=== PATIENT | male | born 1980 | race Caucasian/White ===

== ENCOUNTER 2018-05-16 22:30 | Emergency (ER) | payer BC, SELFPAY ==
[2018-05-16] MEDS ORDERED: FAMOTIDINE 20 MG/2 ML VIAL IV ONE (22:52)
[2018-05-16 23:06] LABS: Absolute Lymphocytes (CBC) 2.7 K/uL (0.7-4.9); Absolute Monocytes 0.5 K/uL (0.1-1.3); Absolute Neutrophil 2.5 K/uL (1.8-8.0); Basophils % 1.2 % (0-1.3); Eosinophils % 6.1 % (0-4.4); Hematocrit 39.2 % (39.6-49.0); Lymphocytes % 43.9 % (15.3-44.8); MCH 32.6 pg (27.0-35.0); MPV 7.7 fL (7.6-11.3); Monocytes % 8.2 % (3.3-12.3); RBC Red Blood Cell Count 4.22 M/uL (4.33-5.43)
[2018-05-16 23:08] LABS: Protime INR 0.98
[2018-05-16] MEDS ORDERED: MORPHINE 4 MG/ML SYR ONE (23:35)
[2018-05-16 23:45] LABS: Barbiturates NEGATIVE (NEGATIVE); Benzodiazepines NEGATIVE (NEGATIVE); Cocaine NEGATIVE (NEGATIVE); METHAMPHETAM NEGATIVE (NEGATIVE); Methadone NEGATIVE (NEGATIVE); Opiates NEGATIVE (NEGATIVE); Phencyclidine NEGATIVE (NEGATIVE); THC Cannibis NEGATIVE (NEGATIVE)
[2018-05-16 23:48] LABS: ALT/SGPT 29 U/L (12-78); AST/SGOT 24 U/L (15-37); Albumin 3.8 g/dL (3.4-5.0); Alkaline Phosphatase 74 U/L (45-117); BUN Blood Urea Nitrogen 18 mg/dL (7-18); Bicarbonate 23 mmol/L (21-32); Bilirubin Direct < 0.1 mg/dL (0-0.2); Bilirubin Total 0.2 mg/dL (0.2-1.0); Creatine Phosphokinase 241 U/L (39-308); Glucose Level 118 mg/dL (74-106); Magnesium 2.4 mg/dL (1.8-2.4); NT PRO-BNP 13 pg/mL (<125); Potassium 3.8 mmol/L (3.5-5.1); Protein, Total 7.2 g/dL (6.4-8.2); Sodium Level 140 mmol/L (136-145)
[2018-05-17] MEDS ORDERED: MAGNE/ALUM HYDROXD 30 ML UCUP ONE (01:06)
--- NOTE | 2018-05-17 01:14 | ER ---
Nurse's Notes [facility] Name: Kwasi Rincon Age: 37 yrs Sex: Male : 1980 Arrival Date: 05/16/2018 Time: 22:31 Bed 18 Private MD: Diagnosis: Chest pain, unspecified Presentation: 05/16 22:34 Presenting complaint: Patient states: I woke up from a nap around 4:30 this afternoon tl2 and had chest pain here (points to middle of chest) and goes straight through to mid back, it seems to be getting worse. Reports nausea, dizziness and blurry vision. Transition of care: patient was not received from another setting of care. Onset of symptoms was May 16, 2018 at 16:30. Risk Assessment: Do you want to hurt yourself or someone else? Patient reports no desire to harm self or others. Initial Sepsis Screen: Does the patient meet any 2 criteria? No. Patient's initial sepsis screen is negative. Does the patient have a suspected source of infection? No. Patient's initial sepsis screen is negative. Care prior to arrival: None. 22:34 Method Of Arrival: Ambulatory tl2 22:34 Acuity: GILES 3 tl2 Triage Assessment: 22:37 General: Appears in no apparent distress. uncomfortable, Behavior is cooperative, tl2 appropriate for age, anxious. Pain: Complains of pain in mid-sternal area Pain does not radiate. Pain currently is 10 out of 10 on a pain scale. Quality of pain is described as pressure, sharp. Historical: - Allergies: 22:37 No Known Allergies; tl2 - Home Meds: 22:37 None [Active]; tl2 - PMHx: 22:37 None; tl2 - PSHx: 22:37 bowel surgery as infant; tl2 - Immunization history:: Adult Immunizations up to date. - Social history:: Smoking status: Patient uses tobacco products, denies chronic smoking, but will smoke occasionally, chewing tobacco. - Ebola Screening: : No symptoms or risks identified at this time. Screenin:40 Abuse screen: Denies threats or abuse. Nutritional screening: No deficits noted. tl2 Tuberculosis screening: No symptoms or risk factors identified. Fall Risk None identified. Assessment: 22:50 General: Appears in no apparent distress. uncomfortable, Behavior is cooperative, tl2 appropriate for age, anxious. Pain: Complains of pain in back and mid-sternal area Pain does not radiate. Pain currently is 10 out of 10 on a pain scale. Quality of pain is described as sharp. Neuro: Level of Consciousness is awake, alert, obeys commands, Oriented to person, place, time, situation. 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 Cardiovascular: Chest pain. Respiratory: Airway is patent Respiratory effort is even, unlabored, Respiratory pattern is regular, symmetrical. GI: Reports nausea. : No signs and/or symptoms were reported regarding the genitourinary system. Derm: Skin is pink, warm \T\ dry. 05/17 00:15 Reassessment: PT STATING PAIN RECURRING, BUT VS REMAIN STABLE ON MONITOR. bp 01:08 Reassessment: PROVIDER AT B/S FOR RE-EVAL. bp 01:23 Reassessment: PT D/C HOME AMBULATORY WITH FAMILY, DX WITH NONSPECIFIC CHEST PAIN. bp Vital Signs: 05/16 22:37 BP 146 / 98; Pulse 70; Resp 20; Temp 98.6(O); Pulse Ox 99% on R/A; Weight 104.33 kg; tl2 Height 5 ft. 11 in. (180.34 cm); Pain 10/10; 05/17 00:15 BP 128 / 83; Pulse 76; Resp 16; Pulse Ox 97% ; bp 01:07 BP 124 / 87; Pulse 60; Resp 23; Pulse Ox 98% ; bp 05/16 22:37 Body Mass Index 32.08 (104.33 kg, 180.34 cm) tl2 ED Course: 05/16 22:31 Patient arrived in ED. wh 22:35 Tong Hurtado, RN is Primary Nurse. bp 22:36 Triage completed. tl2 22:37 Arm band placed on right wrist. tl2 22:38 Fletcher Wheatley NP is PHCP. pm1 22:38 Farzad Lawrence MD is Attending Physician. pm1 22:40 Patient has correct armband on for positive identification. Placed in gown. Bed in low tl2 position. Call light in reach. Side rails up X 1. Adult w/ patient. 22:43 Inserted saline lock: 18 gauge in right forearm, using aseptic technique. Blood tl2 collected. placed by Tong, RN. 23:02 XRAY Chest (1 view) In Process Unspecified. EDMS 05/17 01:16 Wayne Liu MD is Referral Physician. pm1 01:22 No provider procedures requiring assistance completed. IV discontinued, intact, bp bleeding controlled, No redness/swelling at site. Pressure dressing applied. Administered Medications: 05/16 22:54 Drug: Pepcid 20 mg Route: IVP; Site: right forearm; bp 23:08 Follow up: Response: No adverse reaction bp 23:30 Drug: morphine 4 mg Route: IVP; Site: right forearm; bp 23:38 Follow up: Response: Pain is decreased bp 05/17 01:07 Drug: GI Cocktail without - (Maalox Suspension 30 ml, Lidocaine Liquid 2 % 15 bp ml) Route: PO; 01:08 Follow up: Response: No adverse reaction; Pain is decreased bp Outcome: 01:14 Discharge ordered by MD. pm1 01:23 Discharged to home ambulatory, with family. bp 01:23 Condition: stable 01:23 Discharge instructions given to patient, Instructed on discharge instructions, follow up and referral plans. medication usage, Demonstrated understanding of instructions, follow-up care, medications, Prescriptions given X 1. 01:24 Patient left the ED. bp Signatures: Dispatcher [employer] EDMS Fletcher Wheatley, ALBERT SHANK CEMENTER HAND pm1 Daya Chang, MERI RN tl2 Elma Garcia Brian, RN RN bp Corrections: (The following items were deleted from the chart) 05/16 22:39 22:34 Presenting complaint: Patient states: I woke up from a nap around 4:30 this tl2 afternoon and had chest pain here (points to middle of chest), it seems to be getting worse. Reports nausea, dizziness and blurry vision. tl2
--- NOTE | 2018-05-17 01:15 | EDPHYS ---
Physician Documentation [facility] Name: Kwasi Rincon Age: 37 yrs Sex: Male : 1980 Arrival Date: 05/16/2018 Time: 22:31 Bed 18 Private MD: ED Physician Farzad Lawrence HPI: 05/16 23:50 This 37 yrs old Male presents to ER via Ambulatory with complaints of Chest pm1 pain. 23:50 The patient or guardian reports chest pain that is located primarily in the mid-sternal pm1 area. The pain does not radiate. Associated signs and symptoms: Pertinent negatives: cough, nausea, shortness of breath, vomiting. The chest pain is described as causing indigestion, sharp. Duration: The patient or guardian reports a single episode, that is still ongoing. Modifying factors: the symptoms are aggravated by eating. Modifying factors: The symptoms are alleviated by antacids. Severity of pain: in the emergency department the pain is actually worse. The patient has not experienced similar symptoms in the past. The patient has not recently seen a physician. Historical: - Allergies: 22:37 No Known Allergies; tl2 - Home Meds: 22:37 None [Active]; tl2 - PMHx: 22:37 None; tl2 - PSHx: 22:37 bowel surgery as ; tl2 - Immunization history:: Adult Immunizations up to date. - Social history:: Smoking status: Patient uses tobacco products, denies chronic smoking, but will smoke occasionally, chewing tobacco. - Ebola Screening: : No symptoms or risks identified at this time. ROS: 23:50 Constitutional: Negative for fever, chills, and weight loss, Eyes: Negative for injury, pm1 pain, redness, and discharge, ENT: Negative for injury, pain, and discharge, Neck: Negative for injury, pain, and swelling, Respiratory: Negative for shortness of breath, cough, wheezing, and pleuritic chest pain. 23:50 Abdomen/GI: Negative for abdominal pain, nausea, vomiting, diarrhea, and constipation, Back: Negative for injury and pain, : Negative for injury, bleeding, discharge, and swelling, MS/Extremity: Negative for injury and deformity, Skin: Negative for injury, rash, and discoloration, Neuro: Negative for headache, weakness, numbness, tingling, and seizure. 23:50 Cardiovascular: Positive for chest pain, Negative for edema, orthopnea, palpitations. Exam: 23:50 Constitutional: This is a well developed, well nourished patient who is awake, alert, pm1 and in no acute distress. Head/Face: Normocephalic, atraumatic. Eyes: Pupils equal round and reactive to light, extra-ocular motions intact. Lids and lashes normal. Conjunctiva and sclera are non-icteric and not injected. Cornea within normal limits. Periorbital areas with no swelling, redness, or edema. ENT: Nares patent. No nasal discharge, no septal abnormalities noted. Tympanic membranes are normal and external auditory canals are clear. Oropharynx with no redness, swelling, or masses, exudates, or evidence of obstruction, uvula midline. Mucous membranes moist. Neck: Trachea midline, no thyromegaly or masses palpated, and no cervical lymphadenopathy. Supple, full range of motion without nuchal rigidity, or vertebral point tenderness. No Meningismus. Chest/axilla: Normal chest wall appearance and motion. Nontender with no deformity. No lesions are appreciated. Cardiovascular: Regular rate and rhythm with a normal S1 and S2. No gallops, murmurs, or rubs. Normal PMI, no JVD. No pulse deficits. Respiratory: Lungs have equal breath sounds bilaterally, clear to auscultation and percussion. No rales, rhonchi or wheezes noted. No increased work of breathing, no retractions or nasal flaring. Abdomen/GI: Soft, non-tender, with normal bowel sounds. No distension or tympany. No guarding or rebound. No evidence of tenderness throughout. Back: No spinal tenderness. No costovertebral tenderness. Full range of motion. Skin: Warm, dry with normal turgor. Normal color with no rashes, no lesions, and no evidence of cellulitis. MS/ Extremity: Pulses equal, no cyanosis. Neurovascular intact. Full, normal range of motion. 23:50 Neuro: Orientation: is normal, Motor: is normal, moves all fours. Vital Signs: 22:37 BP 146 / 98; Pulse 70; Resp 20; Temp 98.6(O); Pulse Ox 99% on R/A; Weight 104.33 kg; tl2 Height 5 ft. 11 in. (180.34 cm); Pain 10/10; 05/17 00:15 BP 128 / 83; Pulse 76; Resp 16; Pulse Ox 97% ; bp 01:07 BP 124 / 87; Pulse 60; Resp 23; Pulse Ox 98% ; bp 05/16 22:37 Body Mass Index 32.08 (104.33 kg, 180.34 cm) tl2 MDM: 05/16 22:38 Patient medically screened. pm1 05/17 01:01 Data reviewed: vital signs. Data interpreted: Pulse oximetry: on room air is 97 %. pm1 Interpretation: normal. 01:14 ED course: GI cocktail resolved his pain. pm1 05/16 22:36 Order name: Basic Metabolic Panel bp 05/16 22:36 Order name: CBC with Diff; Complete Time: 23:49 bp 05/16 22:36 Order name: Ckmb; Complete Time: 23:49 bp 05/16 22:36 Order name: CPK; Complete Time: 23:49 bp 05/16 22:36 Order name: LFT's; Complete Time: 23:49 bp 05/16 22:36 Order name: Magnesium; Complete Time: 23:49 bp 05/16 22:36 Order name: NT PRO-BNP; Complete Time: 23:49 bp 05/16 22:36 Order name: PT-INR; Complete Time: 23:49 bp 05/16 22:36 Order name: Ptt, Activated; Complete Time: 23:49 bp 05/16 22:36 Order name: Troponin (emerg Dept Use Only); Complete Time: 00:35 bp 05/16 22:36 Order name: XRAY Chest (1 view) bp 05/16 22:36 Order name: Basic Metabolic Panel; Complete Time: 23:49 EDMS 05/16 23:08 Order name: UDS; Complete Time: 23:49 bp 05/16 23:28 Order name: Urine Dipstick--Ancillary (enter results) rg2 05/16 22:36 Order name: EKG; Complete Time: 22:37 bp 05/16 22:36 Order name: Cardiac monitoring; Complete Time: 22:43 bp 05/16 22:36 Order name: EKG - Nurse/Tech; Complete Time: 22:43 bp 05/16 22:36 Order name: IV Saline Lock; Complete Time: 22:43 bp 05/16 22:36 Order name: Labs collected and sent; Complete Time: 22:43 bp 05/16 22:36 Order name: O2 Per Protocol; Complete Time: 22:43 bp 05/16 22:36 Order name: O2 Sat Monitoring; Complete Time: 22:43 bp 05/16 22:36 Order name: Urine Dipstick-Ancillary (obtain specimen); Complete Time: 23:29 bp Administered Medications: 05/16 22:54 Drug: Pepcid 20 mg Route: IVP; Site: right forearm; bp 23:08 Follow up: Response: No adverse reaction bp 23:30 Drug: morphine 4 mg Route: IVP; Site: right forearm; bp 23:38 Follow up: Response: Pain is decreased bp 05/17 01:07 Drug: GI Cocktail without - (Maalox Suspension 30 ml, Lidocaine Liquid 2 % 15 bp ml) Route: PO; 01:08 Follow up: Response: No adverse reaction; Pain is decreased bp Disposition: 02:16 Co-signature as Attending Physician, Farzad Lawrence MD. [email or web address] Disposition: 05/17/18 01:14 Discharged to Home. Impression: Chest pain, unspecified. - Condition is Stable. - Discharge Instructions: Nonspecific Chest Pain. - Prescriptions for Pepcid 20 mg Oral Tablet - take 1 tablet by ORAL route every 12 hours for 10 days; 20 tablet. - Medication Reconciliation Form, Thank You Letter, Antibiotic Education, Prescription Opioid Use form. - Follow up: Emergency Department; When: As needed; Reason: Worsening of condition. Follow up: Private Physician; When: 2 - 3 days; Reason: Recheck today's complaints, Continuance of care, Re-evaluation by your physician. Follow up: Wayne Liu MD; When: 2 - 3 days; Reason: Recheck today's complaints, Continuance of care, Re-evaluation by your physician. - Problem is new. - Symptoms have improved. Signatures: Dispatcher [employer] EDMS Farzad Lawrence MD MD pkl Fletcher Wheatley NP CT MRI TECHNOLOGIST pm1 Daya Chang, EMRI RN tl2 Tong Hurtado RN RN bp Corrections: (The following items were deleted from the chart) 01:16 01:14 05/17/2018 01:14 Discharged to Home. Impression: Chest pain, unspecified. pm1 Condition is Stable. Forms are Medication Reconciliation Form, Thank You Letter, Antibiotic Education, Prescription Opioid Use. Follow up: Emergency Department; When: As needed; Reason: Worsening of condition. Follow up: Private Physician; When: 2 - 3 days; Reason: Recheck today's complaints, Continuance of care, Re-evaluation by your physician. Problem is new. Symptoms have improved. pm1 01:24 01:16 05/17/2018 01:14 Discharged to Home. Impression: Chest pain, unspecified. bp Condition is Stable. Discharge Instructions: Nonspecific Chest Pain. Prescriptions for Pepcid 20 mg Oral Tablet - take 1 tablet by ORAL route every 12 hours for 10 days; 20 tablet. and Forms are Medication Reconciliation Form, Thank You Letter, Antibiotic Education, Prescription Opioid Use. Follow up: Emergency Department; When: As needed; Reason: Worsening of condition. Follow up: Private Physician; When: 2 - 3 days; Reason: Recheck today's complaints, Continuance of care, Re-evaluation by your physician. Follow up: Wayne Liu; When: 2 - 3 days; Reason: Recheck today's complaints, Continuance of care, Re-evaluation by your physician. Problem is new. Symptoms have improved. pm1
[2018-05-17 04:53] LABS: Urine Blood TRACE (NEG); Urine Glucose NEGATIVE (NEG); Urine Protein NEGATIVE (NEG); Urine pH 5.5 (5.0-7.0)
--- NOTE | 2018-05-17 08:10 | RAD REPORT ---
EXAM DESCRIPTION: RAD - Chest Single View - 05/16/2018 11:02 pm CLINICAL HISTORY: Chest pain, nausea, blurred vision COMPARISON: None. TECHNIQUE: AP portable chest image was obtained 2252 hours . FINDINGS: Lung volumes are relatively low. No peripheral mass, consolidation or failure. Heart and v asculature are normal. No measurable pleural effusion and no pneumothorax. No gross bony abnormality seen. No acute aortic findings suspected. IMPRESSION: No acute cardiopulmonary process.
--- NOTE | 2018-05-18 07:44 | EKG ---
Test Date: 2018-05-16 Test Time: 22:32:05 Aircraft Part Assembler: JONATHON MEASUREMENT RESULTS: Intervals: Rate: 69 MO: 162 QRSD: 78 QT: 380 QTc: 407 [place]: P: 48 MO: 162 QRS: 2 T: 13 INTERPRETIVE STATEMENTS: Normal sinus rhythm with sinus arrhythmia Normal ECG No previous ECG available for comparison Electronically Signed On 05-18-18 07:43:15 CDT by Chay Mchugh
== END 2018-05-17 01:24 | disposition home or self-care (01) ==
LOC: ER 22:30
DX: R07.9 Chest pain, unspecified (principal); Z72.0 Tobacco use
CPT/HCPCS: 36415; 71045; 80048; 80076; 80307; 81003; 82550; 82553; 83735; 83880; 84484; 85025; 85610; 85730; 93005; 96374; 96375; 99284

== ENCOUNTER 2019-09-24 10:41 | Emergency (ER) | payer BC, SELFPAY ==
[2019-09-24] MEDS ORDERED: CLINDAMYCIN 900MG/D5W 900 MG/50 ML IVPB IV ONE (12:47)
[2019-09-24] MEDS ORDERED: KETOROLAC 30 MG/ML INJ ONE (12:53)
[2019-09-24 12:57] LABS: Absolute Lymphocytes (CBC) 2.5 K/uL (0.7-4.9); Basophils % 0.8 % (0-1.3); Lymphocytes % 30.9 % (15.3-44.8); MPV 7.8 fL (7.6-11.3); RBC Red Blood Cell Count 4.44 M/uL (4.33-5.43)
[2019-09-24 13:12] LABS: Potassium 4.2 mmol/L (3.5-5.1)
--- NOTE | 2019-09-24 13:26 | EDPHYS ---
Physician Documentation [facility] Name: Kwasi Rincon Age: 39 yrs Sex: Male : 1980 Arrival Date: 09/24/2019 Time: 10:47 Bed 18 Private MD: ED Physician Stalin Kumar HPI: 09/24 12:47 This 39 yrs old Male presents to ER via Ambulatory with complaints of Arm kb Pain, Abscess. 12:47 The patient presents with cellulitis of the left arm. Description: erythematous, hot, kb swollen. Onset: The symptoms/episode began/occurred 3 week(s) ago. Possible cause(s): popped a pimple or insect bite and redness/swelling developed after that. Associated signs and symptoms: Pertinent positives: erythema, swelling, Pertinent negatives: fever. Modifying factors: the symptoms are alleviated by nothing, the symptoms are aggravated by pressure, touching. Severity of symptoms: At their worst the symptoms were moderate, in the emergency department the symptoms are unchanged. The patient has not experienced similar symptoms in the past. The patient has not recently seen a physician. Pt reports he popped a pimple or insect bite that was on his elbow then the area started swelling and getting red. Reports redness and swelling spread to entire arm now. . Historical: - Allergies: 11:16 DM; aa5 11:16 Vicodin; aa5 - PMHx: 11:16 None; aa5 - PSHx: 11:16 bowel surgery as infant; aa5 - Immunization history:: Flu vaccine is not up to date. - Social history:: Smoking status: Patient/guardian denies using tobacco. - Ebola Screening: : No symptoms or risks identified at this time. ROS: 12:45 Constitutional: Negative for fever, chills, and weight loss, Neck: Negative for injury, kb pain, and swelling, Cardiovascular: Negative for chest pain, palpitations, and edema, Respiratory: Negative for shortness of breath, cough, wheezing, and pleuritic chest pain, Abdomen/GI: Negative for abdominal pain, nausea, vomiting, diarrhea, and constipation, Back: Negative for injury and pain, Neuro: Negative for headache, weakness, numbness, tingling, and seizure. 12:45 Skin: Positive for cellulitis, erythema, swelling, of the left arm. Exam: 12:46 Constitutional: This is a well developed, well nourished patient who is awake, alert, kb and in no acute distress. Head/Face: Normocephalic, atraumatic. Chest/axilla: Normal chest wall appearance and motion. Nontender with no deformity. No lesions are appreciated. Cardiovascular: Regular rate and rhythm with a normal S1 and S2. No gallops, murmurs, or rubs. Normal PMI, no JVD. No pulse deficits. Respiratory: Lungs have equal breath sounds bilaterally, clear to auscultation and percussion. No rales, rhonchi or wheezes noted. No increased work of breathing, no retractions or nasal flaring. Abdomen/GI: Soft, non-tender, with normal bowel sounds. No distension or tympany. No guarding or rebound. No evidence of tenderness throughout. Back: No spinal tenderness. No costovertebral tenderness. Full range of motion. MS/ Extremity: Pulses equal, no cyanosis. Neurovascular intact. Full, normal range of motion. Neuro: Awake and alert, GCS 15, oriented to person, place, time, and situation. Cranial nerves II-XII grossly intact. Motor strength 5/5 in all extremities. Sensory grossly intact. Cerebellar exam normal. Normal gait. 12:46 Skin: cellulitis, that is moderate, on the left arm. Vital Signs: 11:16 BP 128 / 80; Pulse 71; Resp 16 S; Temp 98.4(O); Pulse Ox 97% on R/A; Weight 110.22 kg aa5 (M); Height 5 ft. 10 in. (177.80 cm) (R); Pain 8/10; 13:05 BP 136 / 86; Pulse 67; Resp 18; Pulse Ox 100% on R/A; Pain 3/10; em 11:16 Body Mass Index 34.87 (110.22 kg, 177.80 cm) aa5 MDM: 12:19 Patient medically screened. kb 12:46 Data reviewed: vital signs, nurses notes. Data interpreted: Pulse oximetry: on room air kb is 97 %. Interpretation: normal. 12:49 ED course: Pt has full ROM of elbow. No joint involvement appreciated . kb 13:00 Counseling: I had a detailed discussion with the patient and/or guardian regarding: the kb historical points, exam findings, and any diagnostic results supporting the discharge/admit diagnosis, radiology results, the need for outpatient follow up, a family practitioner, to return to the emergency department if symptoms worsen or persist or if there are any questions or concerns that arise at home. 09/24 12:32 Order name: CBC with Diff 09/24 12:32 Order name: Basic Metabolic Panel 09/24 12:32 Order name: Blood Culture Adult (2) 09/24 12:58 Order name: CBC with Automated Diff; Complete Time: 13:00 EDMS 09/24 13:12 Order name: Basic Metabolic Panel; Complete Time: 13:25 EDMS 09/24 12:32 Order name: IV Start; Complete Time: 12:53 kb Administered Medications: 12:58 Drug: TORadol - Ketorolac 15 mg Route: IVP; Site: right antecubital; hb 13:10 Follow up: Response: No adverse reaction; Marked relief of symptoms; Pain is decreased em 13:00 Drug: Clindamycin 900 mg Route: IVPB; Infused Over: 30 mins; Site: right antecubital; em 13:44 Follow up: Response: No adverse reaction; IV Status: Completed infusion; IV Intake: 50mlem 13:42 Drug: fentaNYL (PF) 50 mcg Route: IVP; Site: right antecubital; hb 13:44 Follow up: Response: No adverse reaction; Marked relief of symptoms em Disposition: 09/24/19 13:26 Discharged to Home. Impression: Cellulitis of left upper limb. - Condition is Stable. - Discharge Instructions: Cellulitis, Adult, [id number]. - Prescriptions for Clindamycin HCl 300 mg Oral Capsule - take 1 capsule by ORAL route every 6 hours for 10 days; 40 capsule. - Medication Reconciliation Form, Thank You Letter, Antibiotic Education, Prescription Opioid Use form. - Follow up: Emergency Department; When: As needed; Reason: Worsening of condition. Follow up: Private Physician; When: 2 - 3 days; Reason: Recheck today's complaints, Continuance of care, Re-evaluation by your physician. Addendum: 09/27/2019 10:07 Co-signature as Attending Physician, Stalin Kumar MD I agree with the assessment and k dr plan of care. Signatures: Dispatcher [employer] EDLeann Christianson, ORANGE PICKER MACHINE OPERATOR-C ORANGE PICKER MACHINE OPERATOR-CkStalin Mcmanus MD MD [facility] Troy Bowden, STEAM CRANE OPERATOR STEAM CRANE OPERATOR Katya Tom, RN RN aa5 Thania Stephenson, RN RN Corrections: (The following items were deleted from the chart) 09/24 13:45 13:26 09/24/2019 13:26 Discharged to Home. Impression: Cellulitis of left upper limb. em Condition is Stable. Discharge Instructions: Cellulitis, Adult, [id number]. Prescriptions for Clindamycin HCl 300 mg Oral Capsule - take 1 capsule by ORAL route every 6 hours for 10 days; 40 capsule. and Forms are Medication Reconciliation Form, Thank You Letter, Antibiotic Education, Prescription Opioid Use. Follow up: Emergency Department; When: As needed; Reason: Worsening of condition. Follow up: Private Physician; When: 2 - 3 days; Reason: Recheck today's complaints, Continuance of care, Re-evaluation by your physician. kb
--- NOTE | 2019-09-24 13:26 | ER ---
Nurse's Notes [facility] Name: Kwasi Rincon Age: 39 yrs Sex: Male : 1980 Arrival Date: 09/24/2019 Time: 10:47 Bed 18 Private MD: Diagnosis: Cellulitis of left upper limb Presentation: 09/24 11:14 Presenting complaint: Patient states: "I had a little zit on my left elbow a few weeks aa5 ago and I popped it but ever since it's been swelling and hurting". Transition of care: patient was not received from another setting of care. Onset of symptoms was August 2019. Risk Assessment: Do you want to hurt yourself or someone else? Patient reports no desire to harm self or others. Initial Sepsis Screen: Does the patient meet any 2 criteria? No. Patient's initial sepsis screen is negative. Does the patient have a suspected source of infection? No. Patient's initial sepsis screen is negative. Care prior to arrival: None. 11:14 Acuity: GILES 4 aa5 11:14 Method Of Arrival: Ambulatory aa5 Historical: - Allergies: 11:16 DM; aa5 11:16 Vicodin; aa5 - PMHx: 11:16 None; aa5 - PSHx: 11:16 bowel surgery as ; aa5 - Immunization history:: Flu vaccine is not up to date. - Social history:: Smoking status: Patient/guardian denies using tobacco. - Ebola Screening: : No symptoms or risks identified at this time. Screenin:53 Abuse screen: Denies threats or abuse. Nutritional screening: No deficits noted. em Tuberculosis screening: No symptoms or risk factors identified. Fall Risk None identified. Assessment: 11:53 General: Appears in no apparent distress. comfortable, Behavior is calm, cooperative, em appropriate for age, Denies fever. Pain: Complains of pain in left elbow and palmar aspect of left forearm Pain currently is 8 out of 10 on a pain scale. Neuro: Level of Consciousness is awake, alert, obeys commands, Oriented to person, place, time, situation, Appropriate for age. Cardiovascular: Capillary refill < 3 seconds Patient's skin is warm and dry. Respiratory: Airway is patent Respiratory effort is even, unlabored, Respiratory pattern is regular, symmetrical. Derm: Skin is intact, is healthy with good turgor, Skin is dry, Skin is red, Skin temperature is hot Abscess located on left elbow is half dollar sized. Musculoskeletal: Capillary refill < 3 seconds, Range of motion: intact in all extremities. 12:05 Reassessment: I agree with previous assessment. hb 13:04 Reassessment: Patient appears in no apparent distress at this time. Patient and/or em family updated on plan of care and expected duration. Pain level reassessed. Patient is alert, oriented x 3, equal unlabored respirations, skin warm/dry/pink. rates pain 3/10 Patient states feeling better. 13:30 Reassessment: reports pain medication only worked for a little bit, provider notified, em new medication orders received. Vital Signs: 11:16 BP 128 / 80; Pulse 71; Resp 16 S; Temp 98.4(O); Pulse Ox 97% on R/A; Weight 110.22 kg aa5 (M); Height 5 ft. 10 in. (177.80 cm) (R); Pain 8/10; 13:05 BP 136 / 86; Pulse 67; Resp 18; Pulse Ox 100% on R/A; Pain 3/10; em 11:16 Body Mass Index 34.87 (110.22 kg, 177.80 cm) aa5 ED Course: 10:47 Patient arrived in ED. mr 11:14 Arm band placed on. aa5 11:15 Triage completed. aa5 11:45 Troy Bowden LVN is Primary Nurse. em 11:53 Patient has correct armband on for positive identification. Bed in low position. Call em light in reach. Adult w/ patient. 12:19 Leann Parada FNP-C is PHCP. kb 12:19 Stalin Kumar MD is Attending Physician. kb 12:25 Initial lab(s) drawn, by in, sent to lab. First set of blood cultures drawn. jb1 12:50 Second set of blood cultures drawn by me. jb1 12:52 Inserted saline lock: 22 gauge in right antecubital area, using aseptic technique. jb1 Blood collected. 13:43 No provider procedures requiring assistance completed. IV discontinued, intact, em bleeding controlled, No redness/swelling at site. Pressure dressing applied. Administered Medications: 12:58 Drug: TORadol - Ketorolac 15 mg Route: IVP; Site: right antecubital; hb 13:10 Follow up: Response: No adverse reaction; Marked relief of symptoms; Pain is decreased em 13:00 Drug: Clindamycin 900 mg Route: IVPB; Infused Over: 30 mins; Site: right antecubital; em 13:44 Follow up: Response: No adverse reaction; IV Status: Completed infusion; IV Intake: 50mlem 13:42 Drug: fentaNYL (PF) 50 mcg Route: IVP; Site: right antecubital; hb 13:44 Follow up: Response: No adverse reaction; Marked relief of symptoms em Intake: 13:44 IV: 50ml; Total: 50ml. em Outcome: 13:26 Discharge ordered by MD. kb 13:43 Discharged to home ambulatory, with family. em 13:43 Condition: good 13:43 Discharge instructions given to patient, family, Instructed on discharge instructions, follow up and referral plans. medication usage, Demonstrated understanding of instructions, follow-up care, medications, Prescriptions given X 1. 13:45 Patient left the ED. em Signatures: Dean Geiger jb1 Leann Parada, LIFE SKILLS TEACHER-C LIFE SKILLS TEACHER-Kennethb Leda Anand Troy Bowden, IMPLEMENTATION SERVICES ANALYST IMPLEMENTATION SERVICES ANALYST em Katya Izaguirre, RN RN aa5 Thania Stephenson, MERI RN hb Corrections: (The following items were deleted from the chart) 11:17 11:16 BP 128 / 80; Pulse 71bpm; Resp 16bpm; Spontaneous; Pulse Ox 97% RA; Temp 98.4F aa5 Oral; 104.33 kg Reported; Height 5 ft. 10 in. Reported; BMI: 33.0; aa5 11:18 11:16 BP 128 / 80; Pulse 71bpm; Resp 16bpm; Spontaneous; Pulse Ox 97% RA; Temp 98.4F aa5 Oral; 104.33 kg Reported; Height 5 ft. 10 in. Reported; BMI: 33.0; Pain 8/10; aa5
[2019-09-24] MEDS ORDERED: FENTANYL CITR 100 MCG/2 ML ONE (13:34)
[2019-09-24 19:07] VITALS: TEMP 98.4
[2019-09-24 19:08] VITALS: BP 136/86; O2SAT 100
== END 2019-09-24 13:45 | disposition home or self-care (01) ==
LOC: ER 10:41
DX: L03.114 Cellulitis of left upper limb (principal); Z88.5 Allergy status to narcotic agent; Z88.8 Allergy status to other drugs, medicaments and biological substances
CPT/HCPCS: 96365; 87040 ×2; 85025; 80048; 36415; 96375; 99284; J3010

== ENCOUNTER 2024-04-22 05:57 | Emergency (ER) | payer BC ==
--- OUTSIDE RECORDS SUMMARY | 2024-04-22 06:00 | XMS REPORT | Continuity of Care Document ---
Author Name Unknown Address [address] [facility] [address] [place] [address] [facility] thconnect Address [address] [facility] [place] [address] Care Team Providers Care Outside Production Inspector Name Role Phone Pcp, Patient Does Not Have A Primary Care Physic juan luis ANTONIA LANGLEY Attending Clinician Unavailable Antonia Langley MD Attending Clinician Unknown, Attending Attending Clinician Unavailab le Doctor Unassigned, [place] Attending Clinician U RED [place] Attending Clinician Unavailable Payers Payer Name Policy Type Policy Number Effective Date Expirati on Date Source [facility] [id number] 2019 00:00:00 Allergies, Adverse Reactions, Alerts Allergy Name Allergy Type Status Severity Reaction(s) Onset Date Inactive Date Treating Clinician Comments Source HYDROCOD ONE-ACET AMINOPHE N DRUG Active Low Hives 12-30 00:00: 00 [facility] Hydrocod one-Acet aminophe n Drug Allergy Active Hives 12-30 00:00: 00 [facility] NO KNOWN ALLERGIE S Drug Class Active [facility] Social History Social Habit Start Date Stop Date Quantity Comments Source [facility] Tobacco use and exposure 2023-12-31 00:00:00 2023-12-31 00:00:00 Smokeless tobacco non-user [facility] Alcohol intake 2023-12-31 00:00:00 2023-12-31 00:00:00 Lifetime non-drinker (finding) [facility] History of Social function 2023-12-31 00:00:00 2023-12-31 00:00:00 [facility] Sex Assigned At 1980 00:00:00 1980 00:00:00 [facility] Smoking Status Start Date Stop Date Source Tobacco smoking consumption unknown [facility] Never smoked tobacco [facility] Medications Ordered Medication Name Filled Medication Name Start Date Stop Date Current Medication? Ordering Clinician Indication Dosage Frequency Signature (SIG) Comments Components Source ipratropium -albuteroL (DUONEB) 0.5 mg-3 mg(2.5 mg base)/3 mL nebulizer solution 3 mL 12-31 01:15: 00 12-31 00:47 :00 No [id number] 3mL [facility] methylpredn isolone sod succ (SOLU-MEDRO L) injection 125 mg 12-31 01:15: 00 12-31 00:48 :00 No [id number] 125mg [facility] albuterol 90 mcg/actuati on inhaler 12-30 00:00: 00 Yes [id number] 2{puff} Inhale 2 Puffs every 6 (six) hours as needed for Shortness of Breath or Wheezing. [facility] guaiFENesin 400 mg tablet 12-30 00:00: 00 Yes [id number] 400mg Take 1 tablet by mouth every 4 (four) hours as needed for Cough. [facility] benzonatate 100 mg capsule 12-30 00:00: 00 Yes [id number] 200mg Take 2 capsules by mouth every 8 (eight) hours as needed for Cough. [facility] amoxicillin -clavulanat e (AUGMENTIN) 875-125 mg per tablet 12-30 00:00: 00 01-10 04:59 :00 No [id number] 1{tbl} Take 1 tablet by mouth in the morning and 1 tablet in the evening. Do all this for 10 days. [facility] Vital Signs Vital Name Observation Time Observation Value Comments S ource Systolic blood pressure 2024-01-01 00:11:00 133 mm[Hg] [facility] Diastolic blood pressure 2024-01-01 00:11:00 85 mm[Hg] [place] [facility] Heart rate 2024-01-01 00:11:00 89 /min [facility] Body temperature 2024-01-01 00:11:00 37.06 Mireya [facility] Respiratory rate 2024-01-01 00:11:00 16 /min [facility] Body height 2024-01-01 00:11:00 180.3 cm [facility] Body weight 2024-01-01 00:11:00 112.038 kg [facility] BMI 2024-01-01 00:11:00 34.45 kg/m2 [facility] Oxygen saturation in Arterial blood by Pulse oximetry 2024-01-01 00:11:00 97 /min [facility] Procedures Procedure Date / Time Performed Performing Clinicia n Source ASSIGNMENT OF BENEFITS 2024-01-01 00:04:25 Docto r Unassigned, [place] [facility] Encounters Start Date/Time End Date/Time Encounter Type Admission Type Attending Clinicians Care Facility Care Department Encounter ID Source 2023-12-31 18:00:00 2023-12-31 18:34:42 Outpatient R ANTONIA LANGLEY [facility] [id number] [facility] 2023-12-31 18:00:00 2023-12-31 18:34:42 Urgent Care Antonia Langley Unknown, Attending [facility] [id number] [facility] 2023-12-31 00:00:00 2023-12-31 00:00:00 Orders Only Doctor Unassigned, [place] [facility] 1..[id number] [facility] 2020-05-03 00:00:00 2020-05-03 00:00:00 Patient Secure Msg Doctor Unassigned, [place] [facility] [id number] [facility] 2020-05-01 10:50:00 2020-05-01 10:50:00 Outpatient RED VASQUEZ [facility] [id number] [facility]
[2024-04-22] MEDS ORDERED: KETOROLAC 30 MG/ML INJ ONE (06:36)
[2024-04-22 06:45] LABS: Absolute Eosinophils 0.2 K/uL (0-0.5); Absolute Lymphocytes (CBC) 1.9 K/uL (0.7-4.9); Absolute Monocytes 0.5 K/uL (0.1-1.3); Absolute Neutrophil 3.4 K/uL (1.8-8.0); Basophils % 0.7 % (0-1.3); Hematocrit 43.6 % (39.6-49.0); Hemoglobin 14.9 g/dL (13.6-17.9); Lymphocytes % 31.7 % (15.3-44.8); MCH 31.4 pg (27.0-35.0); MCHC 34.1 g/dL (32.0-36.0); MCV 92.1 fL (80-100); MPV 7.2 fL (7.6-11.3); Monocytes % 8.4 % (3.3-12.3); Neutrophils % 55.2 % (41.7-73.7); Nucleated Red Blood Cells % 0.1 % (0-0); Platelets 237 thou/uL (152-406); RBC Red Blood Cell Count 4.73 M/uL (4.33-5.43); Red Cell Distribution Width 13.5 % (12.1-15.2)
[2024-04-22 07:01] LABS: Albumin 4.3 g/dL (3.4-5.0); Albumin/Globulin Ratio 1.1 (1.1-1.8); Bilirubin Total 0.6 mg/dL (0.2-1.0); Globulin 3.8 g/dL (2.3-3.5); Protein, Total 8.1 g/dL (6.4-8.2); Uric Acid 8.8 mg/dL (3.5-7.2)
--- NOTE | 2024-04-22 09:40 | ER ---
Nurse's Notes [facility] Name: Kwasi Rincon Age: 43 yrs Sex: Male : 1980 Arrival Date: 04/22/2024 Time: 05:57 Bed 20 Private MD: Diagnosis: Gout, unspecified Presentation: 04/22 06:16 Chief complaint: Patient states: R foot pain, redness and swelling that began Friday ss and has become progressively worse. No known injury. No wound noted. Coronavirus screen: Client denies travel out of the [place] in the last 14 days. Ebola Screen: Patient denies exposure to infectious person. Patient denies travel to an Ebola-affected area in the 21 days before illness onset. Initial Sepsis Screen: Does the patient meet any 2 criteria? No. Patient's initial sepsis screen is negative. Does the patient have a suspected source of infection? No. Patient's initial sepsis screen is negative. Risk Assessment: Do you want to hurt yourself or someone else? Patient reports no desire to harm self or others. Onset of symptoms was April 20, 2024. 06:16 Method Of Arrival: Wheelchair ss 06:16 Acuity: GILES 3 ss Triage Assessment: 06:20 General: Appears uncomfortable, Behavior is calm, cooperative. Pain: Complains of pain ss in right foot Pain currently is 10 out of 10 on a pain scale. Neuro: Level of Consciousness is awake, alert, obeys commands. Respiratory: Airway is patent Respiratory effort is even, unlabored. Derm: Skin is pink, warm \T\ dry. normal. Historical: - Allergies: 06:20 Vicodin; ss - Home Meds: 06:20 None [Active]; ss - PMHx: 06:20 None; ss - PSHx: 06:20 R hand; ss - Immunization history:: Adult Immunizations up to date. - Infectious Disease History:: Denies. - Social history:: Smoking status: Patient reports the use of cigarette tobacco products, 1-2/day, Patient reports use of chewing tobacco. Smoking status: Reported history of juuling and/or vaping. Screenin:42 [facility] ED Fall Risk Assessment (Adult) History of falling in the last 3 months, jj7 including since admission No falls in past 3 months (0 pts) Confusion or Disorientation No (0 pts) Intoxicated or Sedated No (0 pts) Impaired Gait No (0 pts) Mobility Assist Device Used No (0 pt) Altered Elimination No (0 pt) Score/Fall Risk Level 0 - 2 = Low Risk Oriented to surroundings, Maintained a safe environment, Educated pt \T\ family on fall prevention, incl call for assistance when getting out of bed. Abuse screen: Denies threats or abuse. Nutritional screening: No deficits noted. Tuberculosis screening: No symptoms or risk factors identified. Assessment: 06:42 General: Appears in no apparent distress. uncomfortable, Behavior is calm, cooperative, jj7 appropriate for age. Pain: Complains of pain in medial aspect of right toes and right first toe Pain currently is 8.5 out of 10 on a pain scale. Musculoskeletal: Reports pain in medial aspect of right toes and right first toe. 08:56 General: Appears uncomfortable, Behavior is calm, cooperative, appropriate for age. ll1 Pain: Complains of pain in right foot Pain currently is 9 out of 10 on a pain scale. Quality of pain is described as aching, throbbing. Musculoskeletal: Circulation, motion, and sensation intact. Capillary refill < 3 seconds, Swelling present in right foot. 09:54 Reassessment: No changes from previously documented assessment. Patient and/or family ll1 updated on plan of care and expected duration. Pain level reassessed. Patient is alert, oriented x 3, equal unlabored respirations, skin warm/dry/pink. Vital Signs: 06:16 BP 161 / 100; Pulse 74; Resp 18; Temp 97; Pulse Ox 97% ; Weight 115.67 kg; Height 5 ft. ss 10 in. ; Pain 10/10; 08:55 BP 140 / 91; Pulse 65; Resp 17; Pulse Ox 99% on R/A; Pain 9/10; ll1 09:54 Resp 17; Temp 97.9; Pain 9/10; ll1 06:16 Body Mass Index 36.59 (115.67 kg, 177.8 cm) ss 06:16 Pain Scale: Adult ss 08:55 Pain Scale: Adult ll1 09:54 Pain Scale: Adult ll1 ED Course: 06:02 Patient arrived in ED. gm2 06:12 Theresa Almazan MD is Attending Physician. sp3 06:20 Triage completed. ss 06:20 Arm band placed on right wrist. ss 06:22 Varinder Shane, RN is Primary Nurse. jj7 06:36 Foot Right 3 View XRAY In Process Unspecified. EDMS 06:41 Inserted saline lock: 20 gauge in right antecubital area, using aseptic technique. oe Blood collected. 06:41 CBC with Diff Sent. jj7 06:41 CMP Sent. jj7 06:42 Patient has correct armband on for positive identification. Bed in low position. Call jj7 light in reach. Adult w/ patient. Provided Education on: USE OF CALL GREEN. 06:42 No provider procedures requiring assistance completed. jj7 07:06 Attending Physician role handed off by Theresa Almazan MD gb1 07:06 Alejandra Bazan MD is Attending Physician. gb1 09:39 Reginald Mesa DPM is Referral Physician. gb1 09:54 IV discontinued, intact, bleeding controlled, No redness/swelling at site. Pressure ll1 dressing applied. Administered Medications: 06:41 Drug: TORadol - Ketorolac IVP 30 mg IVP once Route: IVP; Site: right antecubital; jj7 09:54 Follow up: Response: No adverse reaction; Pain is decreased; RASS: Alert and Calm (0) ll1 Medication: 06:42 VIS not applicable for this client. jj7 Outcome: 09:39 Discharge ordered by . gb1 09:54 Discharged to home via wheelchair, ll1 09:54 Condition: stable 09:54 Discharge instructions given to patient, Instructed on discharge instructions, follow up and referral plans. medication usage, Demonstrated understanding of instructions, follow-up care, medications, Prescriptions given X 1, 09:55 Patient left the ED. ll1 Signatures: Dispatcher [employer] EDMS Evonne Drew, MERI RN ss Alexander Sepulveda oe Kari Flores RN RN ll1 Theresa Almazan MD MD sp3 Varinder Shane RN RN jj7 Blocker, Gina, MD MD gb1 Shelia Sheth 2
--- NOTE | 2024-04-22 09:40 | EDPHYS ---
Physician Documentation [facility] Name: Kwasi Rincon Age: 43 yrs Sex: Male : 1980 Arrival Date: 04/22/2024 Time: 05:57 Bed 20 Private MD: ED Physician Alejandra Bazan HPI: 04/22 06:21 This 43 yrs old Male presents to ER via Wheelchair with complaints of Foot Pain. sp3 06:21 43-year-old male with no known past medical history presents with right first sp3 metatarsal joint foot pain for off-and-on for 2 to 3 weeks. He denies any direct injury or trauma but he denies any calf pain, prolonged immobilization, long travel. No prior history of gout or other inflammatory arthritis. Patient denies fever, headache, neck pain, chest pain, shortness of breath, abdominal pain, nausea, vomiting, diarrhea, rash, syncope, near syncope, prolonged immobilization, travel history, known sick contacts, or any other signs or symptoms on ROS at this time.. Historical: - Allergies: 06:20 Vicodin; ss - Home Meds: 06:20 None [Active]; ss - PMHx: 06:20 None; ss - PSHx: 06:20 R hand; ss - Immunization history:: Adult Immunizations up to date. - Infectious Disease History:: Denies. - Social history:: Smoking status: Patient reports the use of cigarette tobacco products, 1-2/day, Patient reports use of chewing tobacco. Smoking status: Reported history of juuling and/or vaping. ROS: 06:23 Constitutional: Negative for fever, chills, and weight loss, Eyes: Negative for injury, sp3 pain, redness, and discharge, ENT: Negative for injury, pain, and discharge, Neck: Negative for injury, pain, and swelling, Cardiovascular: Negative for chest pain, palpitations, and edema, Respiratory: Negative for shortness of breath, cough, wheezing, and pleuritic chest pain, Abdomen/GI: Negative for abdominal pain, nausea, vomiting, diarrhea, and constipation, Back: Negative for injury and pain, Skin: Negative for injury, rash, and discoloration, Neuro: Negative for headache, weakness, numbness, tingling, and seizure, Psych: Negative for depression, anxiety, suicide ideation, homicidal ideation, and hallucinations, Allergy/Immunology: Negative for hives, rash, and allergies, 06:23 All other systems are negative, Exam: 06:28 Constitutional: This is a well developed, well nourished patient who is awake, alert, sp3 and in no acute distress. Head/Face: Normocephalic, atraumatic. Eyes: Pupils equal round and reactive to light, extra-ocular motions intact. Lids and lashes normal. Conjunctiva and sclera are non-icteric and not injected. Cornea within normal limits. Periorbital areas with no swelling, redness, or edema. Neck: Trachea midline, no thyromegaly or masses palpated, and no cervical lymphadenopathy. Supple, full range of motion without nuchal rigidity, or vertebral point tenderness. No Meningismus. Chest/axilla: Normal chest wall appearance and motion. Nontender with no deformity. No lesions are appreciated. Cardiovascular: Regular rate and rhythm with a normal S1 and S2. No gallops, murmurs, or rubs. Normal PMI, no JVD. No pulse deficits. Respiratory: Lungs have equal breath sounds bilaterally, clear to auscultation and percussion. No rales, rhonchi or wheezes noted. No increased work of breathing, no retractions or nasal flaring. Abdomen/GI: Soft, non-tender, with normal bowel sounds. No distension or tympany. No guarding or rebound. No evidence of tenderness throughout. Back: No spinal tenderness. No costovertebral tenderness. Full range of motion. Skin: Warm, dry with normal turgor. Normal color with no rashes, no lesions, and no evidence of cellulitis. Neuro: Awake and alert, GCS 15, oriented to person, place, time, and situation. Cranial nerves II-XII grossly intact. Motor strength 5/5 in all extremities. Sensory grossly intact. Cerebellar exam normal. Normal gait. Psych: Awake, alert, with orientation to person, place and time. Behavior, mood, and affect are within normal limits. 06:28 Musculoskeletal/extremity: First metatarsal joint pain and mild swelling. No evidence of trauma. Vascular exam is normal. No calf tenderness.. Vital Signs: 06:16 BP 161 / 100; Pulse 74; Resp 18; Temp 97; Pulse Ox 97% ; Weight 115.67 kg; Height 5 ft. ss 10 in. ; Pain 10/10; 08:55 BP 140 / 91; Pulse 65; Resp 17; Pulse Ox 99% on R/A; Pain 9/10; ll1 09:54 Resp 17; Temp 97.9; Pain 9/10; ll1 06:16 Body Mass Index 36.59 (115.67 kg, 177.8 cm) ss 06:16 Pain Scale: Adult ss 08:55 Pain Scale: Adult ll1 09:54 Pain Scale: Adult ll1 MDM: 06:14 Patient medically screened. sp3 06:29 Data reviewed: vital signs, nurses notes, lab test result(s), radiologic studies. ED sp3 course: 43-year-old male with right foot pain for several weeks now increasing. Differential diagnosis includes gouty arthritis versus other inflammatory arthritis versus fracture versus stress fracture. I am not highly suspicious for septic joint, infection, DVT, sepsis, or any other critical process at this time. Workup will include foot x-ray and laboratory values putting uric acid. Patient will be signed out to daytime physician for final reevaluation and disposition.. 09:37 ED course: I received this patient in turnover from Dr. Almazan at 0700 today pending gb1 x-ray read and labs. The patient has a negative foot x-ray on the right today no signs of fracture or dislocation. No bone spurs or any signs of osteomyelitis. The patient is uric acid is elevated and his exam is the clinically significant and concerning for an acute gouty flare. I doubt a septic joint at this time. I will prescribe indomethacin and discharge the patient home with explicit return precautions to which he is compliant to prior discharge home today.. 04/22 06:21 Order name: CBC with Diff; Complete Time: 06:54 sp3 04/22 06:21 Order name: CMP; Complete Time: 07:07 sp3 04/22 06:21 Order name: Uric Acid; Complete Time: 07:07 sp3 04/22 06:21 Order name: Foot Right 3 View XRAY sp3 04/22 06:21 Order name: IV Saline Lock; Complete Time: 06:41 sp3 04/22 06:21 Order name: Labs collected and sent; Complete Time: 06:41 sp3 Administered Medications: 06:41 Drug: TORadol - Ketorolac IVP 30 mg IVP once Route: IVP; Site: right antecubital; jj7 09:54 Follow up: Response: No adverse reaction; Pain is decreased; RASS: Alert and Calm (0) ll1 Disposition Summary: 04/22/24 09:39 Discharge Ordered Notes: Location: Home gb1 Condition: Stable gb1 Diagnosis - Gout, unspecified gb1 Followup: gb1 - With: Reginald Mesa DPM - When: As needed - Reason: Recheck today's complaints Discharge Instructions: - Discharge Summary Sheet gb1 - Low-Purine Eating Plan gb1 - Gout, [id number] gb1 Forms: - Work release form ll1 - Medication Reconciliation Form gb1 - Antibiotic Education gb1 - Prescription Opioid Use gb1 - Patient Portal Instructions gb1 - Leadership Thank You Letter gb1 Prescriptions: - indomethacin 50 mg Oral capsule - take 1 capsule ORAL route 2 times per day administer with food or milk; 30 gb1 capsule; Refills: 0, Product Selection Permitted Signatures: Dispatcher [employer] Evonne Dickey RN RN ss Kari Flores RN RN ll1 Theresa Almazan MD MD sp3 Varinder Shane RN RN jj7 Alejandra aBzan MD MD gb1
[2024-04-22 10:16] VITALS: BP 140/91; TEMP 97.9; O2SAT 99
--- NOTE | 2024-04-22 10:42 | RAD REPORT ---
EXAM DESCRIPTION: XR Right Foot Complete, 3 or More Views CLINICAL HISTORY: The patient is 43 years old and is Male; Swelling;Pain TECHNIQUE: Three views of the right foot. COMPARISON: No relevant prior studies available. FINDINGS: Bones/joints: No acute fracture visualized. No dislocation. Soft tissues: Unremarkable. No radiopaque foreign body. IMPRESSION: No acute findings in the right foot. Electronically signed by: Britta Crouch MD 04/22/2024 06:45 AM CDT RP ND Due to temporary technical issues with the PACS/Fluency reporting system, reports are being signed by the in house radiologist without review as a courtesy to ensure prompt reporting. The interpreting r adiologist is fully responsible for the content of the report.
== END 2024-04-22 09:55 | disposition home or self-care (01) ==
LOC: ER 05:57
DX: M10.9 Gout, unspecified (principal); F17.210 Nicotine dependence, cigarettes, uncomplicated; Z88.5 Allergy status to narcotic agent
CPT/HCPCS: 36415; 80053; 84550; 85025; 96374; 99284